=== PATIENT | male | born 1950 | race Caucasian/White ===

== ENCOUNTER → 2018-03-21 | Outpatient (REF) ==
[~2018-03-21] MED LIST: AMLO-1 PO; AMLO-96 PO; ASPI-715 PO; ASPI81TA86 PO; ATOR40TA69 PO; DOC100 PO; HCTZ25 PO; HYDR-2966 PO; HYDR-4309 PO; HYDR12.561 PO; LISI-362 PO; LISI-368 PO; LISI20TA29 PO; MIR; PER PO; PNEU0.5D3 IM; SEN PO; SIMV-44 PO; SIMV-54 PO; ZOST19404 SQ
[2018-03-21 11:50] LABS: LDL CHOLESTEROL 118 mg/dl
== END ==
DX: Z02.9 Encounter for administrative examinations, unspecified (principal)

== ENCOUNTER → 2018-05-22 | Outpatient (CLI) | payer OTHER, MEDICARE ==
[~2018-05-22] MED LIST changes: +AMLO2.5T74 PO; +LISI-353 PO
--- NOTE | 2018-05-22 09:45 | RADIOLOGY IMAGING REPORT ---
FACILITY[place] [facility] [place]IENT NAME: Chris Mcdaniel : 1950 MR: [id number] V: [id number] EXAM DATE: ORDERING PHYSICIAN: EUNICE GARCIA TECHNOLOGIST: Location: [facility] - [place] Patient: Chris Mcdaniel : 1950 Visit/Account:[id number] Date of Sevice: 05/22/2018 EXAMINATION: Aorta ultrasound with duplex Doppler evaluation HISTORY: Smoking history COMPARISON: CT abdomen pelvis June 10, 2011 FINDINGS: Suprarenal abdominal aorta: 1.6 x 2.2 cm AP and transverse dimensions Superior infrarenal abdominal aorta: 1.5 x 1.4 cm AP and transverse dimensions Mid infrarenal abdominal aorta: 1.4 x 1.3 cm AP and transverse dimensions Inferior infrarenal abdominal aorta: 1.4 x 1.5 cm AP and transverse dimensions Proximal common iliac artery diameter: Left nine mm; right 8.5 mm Aorta wall: Negative. Aorta and proximal common iliac artery are patent by duplex Doppler ultrasound. IMPRESSION: No evidence of an abdominal aortic aneurysm. Report Dictated By: Fatoumata Pineda MD at 05/22/2018 9:20 AM Report E-Signed By: Fatoumata Pineda MD at 05/22/2018 9:42 AM WSN:[email or web address]
== END ==
LOC: US 01:49
PROVIDERS: ATTEND Nurse Practitioner Family
DX: Z87.891 Personal history of nicotine dependence (principal)
CPT/HCPCS: 93978

== ENCOUNTER 2018-09-16 06:59 | Emergency (ER) | payer OTHER, MEDICARE ==
[~2018-09-16 06:59] MED LIST changes: +AMLO-111 PO; -AMLO-96 PO; -AMLO2.5T74 PO; +AMLO2.5T76 PO; -HYDR-4309 PO; +HYDR-653 PO
[2018-09-16 07:04] VITALS: BP 168/95
[2018-09-16] MEDS ORDERED: ASPIRIN 81 MG CHEW PO ONE (07:05)
[2018-09-16] MEDS ORDERED: ONDANSETRON 4 MG/2 ML VIAL IVP ONE (07:05)
--- NOTE | 2018-09-16 07:06 | ER Report ---
History and Physical Time Seen By MD: 07:07 HPI/ROS CHIEF COMPLAINT: Heart burn and nausea HISTORY OF PRESENT ILLNESS: Patient is a 68-year-old male who presents to the emergency department for evaluation of epigastric abdominal pain and burning. This is associated with nausea. Patient states symptoms began last evening around 1:30 AM and have been persistent. Patient took Tums last night without relief in approximately around 2:30 he took some Pepto-Bismol which did provide some relief. The patient then woke up again around 4:30 the morning with persistent pain. He denies any shortness of breath or diaphoresis. No radiation of the pain. Current pain level is 3 out of 10 in intensity. It is not positional or reproducible. No prior history of heart disease. Patient has a history of hypercholesterolemia and hypertension. Patient is a former smoker but quit 50 years ago. REVIEW OF SYSTEMS: Constitutional: No fever, no chills. Eyes: No discharge. ENT: No sore throat. Cardiovascular: No chest pain, no palpitations. Respiratory: No cough, no shortness of breath. Gastrointestinal: Epigastric abdominal pain with nausea no vomiting Genitourinary: No hematuria. Musculoskeletal: No back pain. Skin: No rashes. Neurological: No headache. Allergies: Coded Allergies: No Known Drug Allergies (Verified , 08/13/16) Home Meds Active Scripts Famotidine (PEPCID) 20 Mg Tablet, 20 MG PO QDAY, #30 TAB 0 Refills Prov:REMEDIOS DELCID MD 09/16/18 Lisinopril/Hydrochlorothiazide (LISINOPRIL-HCTZ 20-12.5 MG TAB) 1 Each Tablet, 1 EACH PO DAILY, #90 TAB 4 Refills Prov:EUNICE GARCIA APRN 05/20/18 Amlodipine Besylate (AMLODIPINE BESYLATE) 2.5 Mg Tablet, 1 TAB PO QDAY, #90 TAB 4 Refills Prov:EUNICE GARCIA APRN 05/20/18 Atorvastatin Calcium (ATORVASTATIN CALCIUM) 40 Mg Tablet, 1 TAB PO QHS, #90 TAB 4 Refills Prov:EUNICE GARCIA APRN 05/20/18 Reported Medications Aspirin (ASPIRIN EC) 81 Mg Tablet., 1 TAB PO QDAY, TAB 10/29/14 Past Medical/Surgical History Past medical history for cerebellar stroke, hypertension, hyperlipidemia, pulmonary embolism in 1985 status post surgery. History of tonsillectomy, hernia repair and vasectomy. Hx Smoking: No Smoking Status: Former Smoker Hx Substance Use Disorder: No Hx Alcohol Use: Yes Constitutional Vital Sign - Last 24 Hours 09/16/18 07:04 Temp 98.0 Pulse 100 Resp 20 B/P (MAP) 168/95 Pulse Ox 93 O2 Delivery Room Air Physical Exam General/Constitutional: Patient is awake, alert, nontoxic and in no acute respiratory distress. Head: Normocephalic and atraumatic. Ears:External canals are clear. Tympanic membranes are clear with normal landmarks and light reflex. Oropharyngeal: Mucous membranes are moist. There is no pharyngeal erythema or exudate. There are no palatal petechiae. Uvula is midline and symmetrical. Neck: Supple, no adenopathy. Cardiovascular: Heart is regular rate and rhythm without audible murmurs, rubs or gallops. Pulmonary: Lungs are clear to auscultation bilaterally. There are no wheezes, rales, or rhonchi. Chest rise is symmetrical Abdomen: Soft, nontender, no guarding or peritoneal signs. Extremities: No gross deformities, No peripheral cyanosis. Able to move all 4 extremities. Neuro: Alert and oriented X3, Skin: No rashes, skin is warm dry and well perfused. Medical Decision Making Data Points Result Diagram: 09/16/1818 09/16/18 0718 Laboratory Hematology Test 09/16/18 07:18 Red Blood Count 5.13 M/uL (4.00-5.60) Mean Corpuscular Volume 94.3 fL (80.0-96.0) Mean Corpuscular Hemoglobin 32.5 pg (26.0-33.0) Mean Corpuscular Hemoglobin Concent 34.5 g/dL (32.0-36.0) Red Cell Distribution Width 12.9 % (11.5-14.5) Mean Platelet Volume 8.3 fL (7.2-11.1) Neutrophils (%) (Auto) 84.1 % (39.4-72.5) Lymphocytes (%) (Auto) 10.0 % (17.6-49.6) Monocytes (%) (Auto) 5.1 % (4.1-12.4) Eosinophils (%) (Auto) 0.2 % (0.4-6.7) Basophils (%) (Auto) 0.6 % (0.3-1.4) Nucleated RBC Relative Count (auto) 0.0 /100WBC Neutrophils # (Auto) 8.0 K/uL (2.0-7.4) Lymphocytes # (Auto) 1.0 K/uL (1.3-3.6) Monocytes # (Auto) 0.5 K/uL (0.3-1.0) Eosinophils # (Auto) 0.0 K/uL (0.0-0.5) Basophils # (Auto) 0.1 K/uL (0.0-0.1) Nucleated RBC Absolute Count (auto) 0.00 K/uL Prothrombin Time 12.2 seconds (12.0-14.4) Prothromb Time International Ratio 0.90 Activated Partial Thromboplast Time 24 seconds (23-35) D-Dimer Quantitative (PE/DVT) 0.48 ug/ml (0-0.50) Sodium Level 141 mmol/L (137-145) Potassium Level 3.5 mmol/L (3.5-5.0) Chloride Level 105 mmol/L (98-107) Carbon Dioxide Level 23 mmol/L (22-30) Blood Urea Nitrogen 11 mg/dl (9-21) Creatinine 0.70 mg/dl (0.66-1.25) Glomerular Filtration Rate Calc > 60.0 Random Glucose 133 mg/dl (75-110) Calcium Level 10.3 mg/dl (8.4-10.2) Total Bilirubin 0.8 mg/dl (0.2-1.3) Aspartate Amino Transf (AST/SGOT) 27 U/L (0-35) Alanine Aminotransferase (ALT/SGPT) 48 U/L (0-56) Alkaline Phosphatase 64 U/L (0-126) Troponin I < 0.012 ng/ml Total Protein 7.9 g/dl (6.3-8.2) Albumin 4.5 g/dl (3.5-5.0) Chemistry Test 09/16/18 07:18 White Blood Count 9.5 k/uL (4.5-11.0) Red Blood Count 5.13 M/uL (4.00-5.60) Hemoglobin 16.7 g/dL (14.0-18.0) Hematocrit 48.4 % (42.0-52.0) Mean Corpuscular Volume 94.3 fL (80.0-96.0) Mean Corpuscular Hemoglobin 32.5 pg (26.0-33.0) Mean Corpuscular Hemoglobin Concent 34.5 g/dL (32.0-36.0) Red Cell Distribution Width 12.9 % (11.5-14.5) Platelet Count 212 K/uL (150-450) Mean Platelet Volume 8.3 fL (7.2-11.1) Neutrophils (%) (Auto) 84.1 % (39.4-72.5) Lymphocytes (%) (Auto) 10.0 % (17.6-49.6) Monocytes (%) (Auto) 5.1 % (4.1-12.4) Eosinophils (%) (Auto) 0.2 % (0.4-6.7) Basophils (%) (Auto) 0.6 % (0.3-1.4) Nucleated RBC Relative Count (auto) 0.0 /100WBC Neutrophils # (Auto) 8.0 K/uL (2.0-7.4) Lymphocytes # (Auto) 1.0 K/uL (1.3-3.6) Monocytes # (Auto) 0.5 K/uL (0.3-1.0) Eosinophils # (Auto) 0.0 K/uL (0.0-0.5) Basophils # (Auto) 0.1 K/uL (0.0-0.1) Nucleated RBC Absolute Count (auto) 0.00 K/uL Prothrombin Time 12.2 seconds (12.0-14.4) Prothromb Time International Ratio 0.90 Activated Partial Thromboplast Time 24 seconds (23-35) D-Dimer Quantitative (PE/DVT) 0.48 ug/ml (0-0.50) Glomerular Filtration Rate Calc > 60.0 Calcium Level 10.3 mg/dl (8.4-10.2) Total Bilirubin 0.8 mg/dl (0.2-1.3) Aspartate Amino Transf (AST/SGOT) 27 U/L (0-35) Alanine Aminotransferase (ALT/SGPT) 48 U/L (0-56) Alkaline Phosphatase 64 U/L (0-126) Troponin I < 0.012 ng/ml Total Protein 7.9 g/dl (6.3-8.2) Albumin 4.5 g/dl (3.5-5.0) Coagulation Test 09/16/18 07:18 Prothrombin Time 12.2 seconds Prothromb Time International Ratio 0.90 Activated Partial Thromboplast Time 24 seconds D-Dimer Quantitative (PE/DVT) 0.48 ug/ml EKG/Imaging EKG Interpretation EKG shows normal sinus rhythm with nonspecific ST and T-wave abnormalities. This EKG was compared to one from April [address] segment or T-wave abnormalities. Monitor Interpretation: Normal Sinus Rhythm Imaging FACILITY: [facility] PATIENT NAME: Chris Mcdaniel : 1950 MR: [id number] V: [id number] EXAM DATE: ORDERING PHYSICIAN: REMEDIOS DELCID TECHNOLOGIST: Location: [facility] - [place] Patient: Chris Mcdaniel : 1950 Visit/Account:[id number] Date of Sevice: 09/16/2018 CHEST PA AND LAT COMPARISONS: None. ADDITIONAL PERTINENT HISTORY: Chest pain for 24 hours FINDINGS: Cardiomediastinal silhouette: Negative. Pulmonary vasculature: Negative. Lung nash: Negative. Pleural spaces: Negative. Osseous structures: Negative. Surrounding soft tissues: Negative. IMPRESSION: Normal views of the chest. Report Dictated By: Jacob Corbin MD at 09/16/2018 7:54 AM Report E-Signed By: Jacob Corbin MD at 09/16/2018 7:55 AM WSN:[id number] ED Course/Re-evaluation ED Course 09/16/2018 8:13:39 am patient feeling improved at this time d-dimer troponin negative. 09/16/2018 8:33:17 am patient is pain-free at this time. We'll discharge home Decision to Disposition Date: Sep 16, 2018 Decision to Disposition Time: 08:33 Depart Departure Latest Vital Signs Vital Signs Date Time Temp Pulse Resp B/P (MAP) Pulse Ox O2 Delivery O2 Flow Rate FiO2 09/16/18 07:04 98.0 100 20 168/95 93 Room Air Impression: Primary Impression: Epigastric abdominal pain Condition: Improved Disposition: HOME OR SELF-CARE Referrals: EUNICE GARCIA APRN [employer] (PCP) New Scripts Famotidine (PEPCID) 20 Mg Tablet 20 MG PO QDAY, #30 TAB 0 Refills Prov: REMEDIOS DELCID MD 09/16/18 Patient Instructions: Epigastric Pain (GEN) Additional Instructions: Follow-up with your family doctor in the next 30 days for reevaluation of your epigastric pain. REMEDIOS DELCID MD Sep 16, 2018 07:06
--- NOTE | 2018-09-16 07:11 | EKG ---
FACILITY: [facility] - [place] PATIENT NAME: TIO TEJADA : [id number] MR: [id number] V: [id number] EXAM DATE: ORDERING PHYSICIAN: REMEDIOS DELCID TECHNOLOGIST: MAYRA Adan Reason : GI PAIN Blood Pressure : / mmHG Vent. Rate : 098 BPM Atrial Rate : 098 BPM P-R Int : 172 ms QRS Dur : 078 ms QT Int : 338 ms P-R-T Axes : 059 -25 036 degrees QTc Int : 431 ms Normal sinus rhythm No ST-T abnormalities When compared with ECG of 05-MAY-2015 12:49, Vent. rate has increased BY 32 BPM Confirmed by TYREE HEWITT ([id number]) on 09/16/2018 10:31:47 AM Referred By: BHAVIN Confirmed By:TYREE HEWITT
[2018-09-16] MEDS ORDERED: NITROGLYCERIN OINT 1 GM PKT TP ONE (07:20)
[2018-09-16 07:26] LABS: PLATELET COUNT, AUTOMATED 212 K/uL (150-450)
[2018-09-16 07:40] LABS: INR 0.9
--- NOTE | 2018-09-16 07:59 | RADIOLOGY IMAGING REPORT ---
FACILITY: [facility] - [place] PATIENT NAME: Chris Mcdaniel : 1950 MR: [id number] V: [id number] EXAM DATE: ORDERING PHYSICIAN: REMEDIOS DELCID TECHNOLOGIST: [place] [facility] [place] Mcdaniel : 1950 Visit/Account:[id number] Date of Sevice: 09/16/2018 CHEST PA AND LAT COMPARISONS: None. ADDITIONAL PERTINENT HISTORY: Chest pain for 24 hours FINDINGS: Cardiomediastinal silhouette: Negative. Pulmonary vasculature: Negative. Lung nash: Negative. Pleural spaces: Negative. Osseous structures: Negative. Surrounding soft tissues: Negative. IMPRESSION: Normal views of the chest. Report Dictated By: Jacob Corbin MD at 09/16/2018 7:54 AM Report E-Signed By: Jacob Corbin MD at 09/16/2018 7:55 AM WSN:[id number]
[2018-09-16] MEDS ORDERED: MAG HYD/AL HYD/SIMETH 30ML UDC PO ONE (08:00)
[2018-09-16] MEDS ORDERED: FAMOTIDINE(*) 20MG/50ML PREMIX 50 ML IVPB ONE (08:00)
[2018-09-16] MEDS ORDERED: FAMO20TA28 PO (08:33)
== END 2018-09-16 08:42 | disposition home or self-care (01) ==
LOC: ER 07:17
DX: R10.13 Epigastric pain (principal)
CPT/HCPCS: 71046; 84484; 85025; 85379; 85610; 85730; 93005; 96365; 96375; 99284; J2405; J3490; 82040; 82247; 82310; 82374; 82435; 82565; 82947; 84075; 84132; 84155; 84295; 84450; 84460; 84520

== ENCOUNTER → 2019-03-19 | Outpatient (REF) ==
[~2019-03-19] MED LIST changes: -AMLO-111 PO; +AMLO-125 PO; -AMLO2.5T76 PO; +AMLO2.5T78 PO; +FAMO20TA28 PO
[2019-03-19 13:40] LABS: LDL CHOLESTEROL 128 mg/dl
== END ==
DX: Z02.9 Encounter for administrative examinations, unspecified (principal)